=== PATIENT | female | born 1965 | race Caucasian/White ===

== ENCOUNTER 2016-11-26 13:14 | Emergency (ER) | payer OTHER | END 2016-11-26 13:54 | disposition left against medical advice (07) | LOC: M ED 13:14 | DX: F41.9 Anxiety disorder, unspecified (principal); Z53.20 Procedure and treatment not carried out because of patient's decision for unspecified reasons ==

== ENCOUNTER → 2016-11-26 | Outpatient (CLI) | payer OTHER ==
[2016-11-26 14:41] LABS: VITAMIN B12 LEVEL 302 PG/ML (247-911)
[2016-11-26 14:43] LABS: TOTAL PROTEIN 7.4 GM/DL (6.4-8.2)
[2016-11-29 12:57] LABS: ALBUMIN 4.31 GM/DL (3.29-5.55); ALBUMIN % 58.2 % (55.8-66.1); GAMMA GLOBULIN % 12.8 % (11.1-18.8)
== END | disposition home or self-care (01) ==
LOC: M LAB 12:42
PROVIDERS: ATTEND Internal Medicine
DX: G62.9 Polyneuropathy, unspecified (principal)

== ENCOUNTER 2016-12-05 14:44 | Emergency (ER) | payer OTHER | END 2016-12-05 15:10 | disposition left against medical advice (07) | LOC: M ED 14:44 | DX: Z76.0 Encounter for issue of repeat prescription (principal); Z53.20 Procedure and treatment not carried out because of patient's decision for unspecified reasons ==

== ENCOUNTER → 2016-12-28 | Outpatient (CLI) | payer OTHER | LOC: M WHC 13:52 | PROVIDERS: ATTEND Nurse Practitioner Family | DX: Z12.31 Encounter for screening mammogram for malignant neoplasm of breast (principal) ==

== ENCOUNTER 2016-12-29 10:00 | Emergency (ER) | payer OTHER ==
--- NOTE | 2016-12-29 10:22 | EDDOCDS ---
Nurse's Notes [facility] Name: Geoff Wade Age: 51 yrs Sex: Female : 1965 Arrival Date: 12/29/2016 Time: 10:00 Bed Triage 3 [facility]: [facility] Diagnosis: Encounter for issue of repeat prescription Presentation: 12/29 10:06 Presenting complaint: Patient states: I need refills of some of my BP medications mlb1 Amlodipine 10 mg daily, Losartan-HCTZ 100-25 mg daily, Neurontin 800 mg TID. Adult Sepsis Screening: The patient does not have new or worsening altered mentation. Patient's respiratory rate is less than 22. Systolic blood pressure is greater than 100. Patient has a qSOFA score of 0- Negative Sepsis Screen. Suicide/Homicide risk assessment- the patient denies having any suicidal and/or homicidal ideations and does not present with any other emotional, behavioral or mental health complaints. Status: Patient is not a developmental services worker or dependent. Transition of care: patient was not received from another setting of care. 10:06 Acuity: JAYLENE Level 5 mlb1 10:06 Method Of Arrival: Walkin/Carried/Asstd mlb1 Triage Assessment: 10:10 General: Appears in no apparent distress, Behavior is appropriate for age, cooperative. mlb1 Pain: Denies pain. 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 amlodipine 10 mg oral tab once daily 2. Fish Oil Oral 2 pils daily 3. Flexeril 10 mg Oral tab nightly 4. ibuprofen 600 mg Oral tab as needed 5. lorazepam 0.5 mg Oral tab as needed 6. losartan-hydrochlorothiazide 100-25 mg oral tab 1 tab once daily 7. Neurontin 800 mg Oral tab 3 times per day 8. Suboxone 8-2 mg SL subl 1 tab once daily 9. topiramate 25 mg oral tab 1 tabs 2 times per day started 09/24/15 10. Tylenol 500mg Oral 2 tabs as needed 11. Vitamin D3 Complete oral daily - PMHx: Anxiety; back pain and belia in right hip; Headaches; Hypertension; old fx right hip; - PSHx: Hysterectomy; - Social history: Smoking status: Patient states former smoker of tobacco. No barriers to communication noted, The patient speaks fluent Djiboutian, Speaks appropriately for age. - Family history: Not pertinent. - : The pt / caregiver states he / she is not on anticoagulants. Home medication list is obtained from the patient. - Exposure Risk Screening:: None identified. Screenin:11 Screening information is obtained from the patient. Fall risk: No risks identified. mlb1 Assistance ADL's: requires no assistance with activities of daily living. Abuse/DV Screen: The patient / caregiver reports he/she is: not in a situation that causes fear, pain or injury. Nutritional screening: No deficits noted. Advance Directives: Currently, there is no health care proxy. home support is adequate. Assessment: 10:16 General: Appears in no apparent distress, comfortable, Behavior is appropriate for age, mlb1 cooperative. Pain: Denies pain. Neurological: No deficits noted. Respiratory: No deficits noted. Derm: Skin is pink, warm & dry. normal. Vital Signs: 10:02 BP 112 / 66; Pulse 99; Resp 18; Temp 99.2; Pulse Ox 96% ; Weight 86.18 kg; Height 5 ft. elp 2 in. (157.48 cm); 10:02 Body Mass Index 34.75 (86.18 kg, 157.48 cm) [facility] Vitals: 10:02 Log In Time: December 29, 2016 at 10:00. [facility] ED Course: 10:01 Patient visited by Tanja Falcon PCA. elp 10:01 Patient moved to Waiting elp 10:02 [facility] is Private Physician. elp 10:02 Patient visited by Tanja Falcon PCA. elp 10:02 Patient moved to Pre E elp 10:06 Patient visited by Denny Combs, LEDY. mlb1 10:09 Triage Initiated mlb1 10:11 Patient visited by Denny Combs, LEDY. mlb1 10:11 [facility] ar2 10:11 Ruth Clements MD is Attending Physician. ar2 10:11 Patient visited by Wilfredo Tavera PA-C. ar2 10:11 The patient / caregiver is instructed regarding the plan of care and ED course. mlb1 10:11 Patient moved to Triage 3 mlb1 10:11 No IV's were initiated during this patient's visit. No procedures done that require mlb1 assistance. 10:15 [facility] is Referral Physician. ar2 Order Results: There are currently no results for this order. Outcome: 10:15 Discharge ordered by Provider. ar2 10:20 Discharge Assessment: Patient awake, alert and oriented x 3. No cognitive and/or mlb1 functional deficits noted. Patient verbalized understanding of disposition instructions. patient administered narcotics - no. The following High Risk Discharge criteria are identified: None. Condition: good. Discharge instructions given to patient, Instructed on discharge instructions, follow up and referral plans. medication usage, Demonstrated understanding of instructions, medications, Pt was receptive of discharge instructions/ teaching. Prescriptions given X 3. No special radiology studies were completed. Property sent home with patient. 10:21 Patient left the ED. mlb1 Signatures: Denny Combs RN RN mlb1 Wilfredo Tavera PA-C PA-C ar2 Ezekiel, Tanja, WOOD PATTERN MAKER WOOD PATTERN MAKER elp WILMER
--- NOTE | 2016-12-29 10:22 | EDDOCDS ---
Physician Documentation [facility] Name: Geoff Wade Age: 51 yrs Sex: Female : 1965 Arrival Date: 12/29/2016 Time: 10:00 Bed Triage 3 Private MD: [facility] Disposition: 12/29/16 10:15 Discharged to Home/Self Care. Impression: Encounter for issue of repeat prescription. - Condition is Stable. - Discharge Instructions: Hypertension, Medicine Refill at the Emergency Department. - Prescriptions for Neurontin 800 mg Oral tablet - take 1 tablet by ORAL route 3 times per day; 15 tablet. amlodipine 10 mg Oral tablet - take 1 tablet by ORAL route once daily; 5 tablet. losartan- hydrochlorothiazide 100-25 mg Oral tablet - take 1 tablet by ORAL route once daily; 5 tablet. - Medication Reconciliation, Local Pharmacy Hours form. - Follow up: [facility]; When: Call to arrange an appointment; Reason: Continuance of care. Follow up: Emergency Department; When: As needed. - Problem is new. - Symptoms are unchanged. Historical: - Allergies: no known allergies; - Home Meds: 1. amlodipine 10 mg oral tab once daily 2. Fish Oil Oral 2 pils daily 3. Flexeril 10 mg Oral tab nightly 4. ibuprofen 600 mg Oral tab as needed 5. lorazepam 0.5 mg Oral tab as needed 6. losartan-hydrochlorothiazide 100-25 mg oral tab 1 tab once daily 7. Neurontin 800 mg Oral tab 3 times per day 8. Suboxone 8-2 mg SL subl 1 tab once daily 9. topiramate 25 mg oral tab 1 tabs 2 times per day started 09/24/15 10. Tylenol 500mg Oral 2 tabs as needed 11. Vitamin D3 Complete oral daily - PMHx: Anxiety; back pain and belia in right hip; Headaches; Hypertension; old fx right hip; - PSHx: Hysterectomy; - Social history: Smoking status: Patient states former smoker of tobacco. No barriers to communication noted, The patient speaks fluent Kyrgyz, Speaks appropriately for age. - Family history: Not pertinent. - : The pt / caregiver states he / she is not on anticoagulants. Home medication list is obtained from the patient. - Exposure Risk Screening:: None identified. 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 2 in. (157.48 cm); 10:02 Body Mass Index 34.75 (86.18 kg, 157.48 cm) elp MDM: 10:17 Financial registration complete. lg Signatures: Silva Flores, Reg Reg lg Denny Combs RN RN mlb1 Wilfredo Tavera PA-C PALinda ar2 MTDD
--- NOTE | 2016-12-31 11:22 | EDDOCDS ---
Physician Documentation [facility] Name: Geoff Wade Age: 51 yrs Sex: Female : 1965 Arrival Date: 12/29/2016 Time: 10:00 Bed Triage 3 Private MD: [facility] Disposition: 12/29/16 10:15 Discharged to Home/Self Care. Impression: Encounter for issue of repeat prescription. - Condition is Stable. - Discharge Instructions: Hypertension, Medicine Refill at the Emergency Department. - Prescriptions for Neurontin 800 mg Oral tablet - take 1 tablet by ORAL route 3 times per day; 15 tablet. amlodipine 10 mg Oral tablet - take 1 tablet by ORAL route once daily; 5 tablet. losartan- hydrochlorothiazide 100-25 mg Oral tablet - take 1 tablet by ORAL route once daily; 5 tablet. - Medication Reconciliation, Local Pharmacy Hours form. - Follow up: [facility]; When: Call to arrange an appointment; Reason: Continuance of care. Follow up: Emergency Department; When: As needed. - Problem is new. - Symptoms are unchanged. Historical: - Allergies: no known allergies; - Home Meds: 1. amlodipine 10 mg oral tab once daily 2. Fish Oil Oral 2 pils daily 3. Flexeril 10 mg Oral tab nightly 4. ibuprofen 600 mg Oral tab as needed 5. lorazepam 0.5 mg Oral tab as needed 6. losartan-hydrochlorothiazide 100-25 mg oral tab 1 tab once daily 7. Neurontin 800 mg Oral tab 3 times per day 8. Suboxone 8-2 mg SL subl 1 tab once daily 9. topiramate 25 mg oral tab 1 tabs 2 times per day started 09/24/15 10. Tylenol 500mg Oral 2 tabs as needed 11. Vitamin D3 Complete oral daily - PMHx: Anxiety; back pain and belia in right hip; Headaches; Hypertension; old fx right hip; - PSHx: Hysterectomy; - Social history: Smoking status: Patient states former smoker of tobacco. No barriers to communication noted, The patient speaks fluent Hungarian, Speaks appropriately for age. - Family history: Not pertinent. - : The pt / caregiver states he / she is not on anticoagulants. Home medication list is obtained from the patient. - Exposure Risk Screening:: None identified. 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 2 in. (157.48 cm); 10:02 Body Mass Index 34.75 (86.18 kg, 157.48 cm) elp MDM: 10:17 Financial registration complete. : [facility] Payment Agreement was scanned into [employer] and attached to record. lg 12/31 08:02 T-Sheet-- Draft Copy was scanned into [employer] and attached to record. lg Signatures: Silva Flores, Reg Reg lg Denny Combs RN RN mlb1 Wilfredo Tavera PA-C PA-C ar2 The chart was reviewed and I authenticate all verbal orders and agree with the evaluation and treatment provided.Attachments: 12/29 10:23 [facility] Payment Agreement lg 12/31 08:02 T-Sheet-- Draft Copy lg Chart Complete MTDD
--- NOTE | 2016-12-31 11:22 | EDDOCDS ---
Physician Documentation [facility] Name: Geoff Wade Age: 51 yrs Sex: Female : 1965 Arrival Date: 12/29/2016 Time: 10:00 Bed Triage 3 Private MD: [facility] Disposition: 12/29/16 10:15 Discharged to Home/Self Care. Impression: Encounter for issue of repeat prescription. - Condition is Stable. - Discharge Instructions: Hypertension, Medicine Refill at the Emergency Department. - Prescriptions for Neurontin 800 mg Oral tablet - take 1 tablet by ORAL route 3 times per day; 15 tablet. amlodipine 10 mg Oral tablet - take 1 tablet by ORAL route once daily; 5 tablet. losartan- hydrochlorothiazide 100-25 mg Oral tablet - take 1 tablet by ORAL route once daily; 5 tablet. - Medication Reconciliation, Local Pharmacy Hours form. - Follow up: [facility]; When: Call to arrange an appointment; Reason: Continuance of care. Follow up: Emergency Department; When: As needed. - Problem is new. - Symptoms are unchanged. Historical: - Allergies: no known allergies; - Home Meds: 1. amlodipine 10 mg oral tab once daily 2. Fish Oil Oral 2 pils daily 3. Flexeril 10 mg Oral tab nightly 4. ibuprofen 600 mg Oral tab as needed 5. lorazepam 0.5 mg Oral tab as needed 6. losartan-hydrochlorothiazide 100-25 mg oral tab 1 tab once daily 7. Neurontin 800 mg Oral tab 3 times per day 8. Suboxone 8-2 mg SL subl 1 tab once daily 9. topiramate 25 mg oral tab 1 tabs 2 times per day started 09/24/15 10. Tylenol 500mg Oral 2 tabs as needed 11. Vitamin D3 Complete oral daily - PMHx: Anxiety; back pain and belia in right hip; Headaches; Hypertension; old fx right hip; - PSHx: Hysterectomy; - Social history: Smoking status: Patient states former smoker of tobacco. No barriers to communication noted, The patient speaks fluent Hungarian, Speaks appropriately for age. - Family history: Not pertinent. - : The pt / caregiver states he / she is not on anticoagulants. Home medication list is obtained from the patient. - Exposure Risk Screening:: None identified. 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 2 in. (157.48 cm); 10:02 Body Mass Index 34.75 (86.18 kg, 157.48 cm) elp MDM: 10:17 Financial registration complete. : [facility] [place] Agreement was scanned into [employer] and attached to record. lg 12/31 08:02 T-Sheet-- Draft Copy was scanned into [employer] and attached to record. lg Signatures: Silva Flores, Reg Reg lg Denny Combs RN RN mlb1 Wilfredo Tavera PA-C PA-C ar2 The chart was reviewed and I authenticate all verbal orders and agree with the evaluation and treatment provided.Attachments: 12/29 10:23 [facility] [place] Agreement lg 12/31 08:02 T-Sheet-- Draft Copy lg Chart Complete MTDD
--- NOTE | 2016-12-31 11:22 | EDDOCDS ---
Nurse's Notes [facility] Name: Geoff Wade Age: 51 yrs Sex: Female : 1965 Arrival Date: 12/29/2016 Time: 10:00 Bed Triage 3 Private [facility]: [facility] Diagnosis: Encounter for issue of repeat prescription Presentation: 12/29 10:06 Presenting complaint: Patient states: I need refills of some of my BP medications mlb1 Amlodipine 10 mg daily, Losartan-HCTZ 100-25 mg daily, Neurontin 800 mg TID. Adult Sepsis Screening: The patient does not have new or worsening altered mentation. Patient's respiratory rate is less than 22. Systolic blood pressure is greater than 100. Patient has a qSOFA score of 0- Negative Sepsis Screen. Suicide/Homicide risk assessment- the patient denies having any suicidal and/or homicidal ideations and does not present with any other emotional, behavioral or mental health complaints. 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 Transition of care: patient was not received from another setting of care. 10:06 Acuity: JAYLENE Level 5 mlb1 10:06 Method Of Arrival: Walkin/Carried/Asstd mlb1 Triage Assessment: 10:10 General: Appears in no apparent distress, Behavior is appropriate for age, cooperative. mlb1 Pain: Denies pain. 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 amlodipine 10 mg oral tab once daily 2. Fish Oil Oral 2 pils daily 3. Flexeril 10 mg Oral tab nightly 4. ibuprofen 600 mg Oral tab as needed 5. lorazepam 0.5 mg Oral tab as needed 6. losartan-hydrochlorothiazide 100-25 mg oral tab 1 tab once daily 7. Neurontin 800 mg Oral tab 3 times per day 8. Suboxone 8-2 mg SL subl 1 tab once daily 9. topiramate 25 mg oral tab 1 tabs 2 times per day started 09/24/15 10. Tylenol 500mg Oral 2 tabs as needed 11. Vitamin D3 Complete oral daily - PMHx: Anxiety; back pain and belia in right hip; Headaches; Hypertension; old fx right hip; - PSHx: Hysterectomy; - Social history: Smoking status: Patient states former smoker of tobacco. No barriers to communication noted, The patient speaks fluent Cook Islander, Speaks appropriately for age. - Family history: Not pertinent. - : The pt / caregiver states he / she is not on anticoagulants. Home medication list is obtained from the patient. - Exposure Risk Screening:: None identified. Screenin:11 Screening information is obtained from the patient. Fall risk: No risks identified. mlb1 Assistance ADL's: requires no assistance with activities of daily living. Abuse/DV Screen: The patient / caregiver reports he/she is: not in a situation that causes fear, pain or injury. Nutritional screening: No deficits noted. Advance Directives: Currently, there is no health care proxy. home support is adequate. Assessment: 10:16 General: Appears in no apparent distress, comfortable, Behavior is appropriate for age, mlb1 cooperative. Pain: Denies pain. Neurological: No deficits noted. Respiratory: No deficits noted. Derm: Skin is pink, warm & dry. normal. Vital Signs: 10:02 BP 112 / 66; Pulse 99; Resp 18; Temp 99.2; Pulse Ox 96% ; Weight 86.18 kg; Height 5 ft. elp 2 in. (157.48 cm); 10:02 Body Mass Index 34.75 (86.18 kg, 157.48 cm) [facility] Vitals: 10:02 Log In Time: December 29, 2016 at 10:00. [facility] ED Course: 10:01 Patient visited by Tanja Falcon PCA. elp 10:01 Patient moved to Waiting elp 10:02 [facility] is Private Physician. elp 10:02 Patient visited by Tanja Falcon PCA. elp 10:02 Patient moved to Pre E elp 10:06 Patient visited by Denny Combs, LEDY. mlb1 10:09 Triage Initiated mlb1 10:11 Patient visited by Denny Combs, LEDY. mlb1 10:11 [facility] ar2 10:11 Ruth Clements MD is Attending Physician. ar2 10:11 Patient visited by Wilfredo Tavera PA-C. ar2 10:11 The patient / caregiver is instructed regarding the plan of care and ED course. mlb1 10:11 Patient moved to Triage 3 mlb1 10:11 No IV's were initiated during this patient's visit. No procedures done that require mlb1 assistance. 10:15 [facility] is Referral Physician. ar2 10:23 [facility] Payment Agreement was scanned into [employer] and attached to record. meka 12/31 08:02 T-Sheet-- Draft Copy was scanned into [employer] and attached to record. Order Results: There are currently no results for this order. Outcome: 12/29 10:15 Discharge ordered by Provider. ar2 10:20 Discharge Assessment: Patient awake, alert and oriented x 3. No cognitive and/or mlb1 functional deficits noted. Patient verbalized understanding of disposition instructions. patient administered narcotics - no. The following High Risk Discharge criteria are identified: None. Condition: good. Discharge instructions given to patient, Instructed on discharge instructions, follow up and referral plans. medication usage, Demonstrated understanding of instructions, medications, Pt was receptive of discharge instructions/ teaching. Prescriptions given X 3. No special radiology studies were completed. Property sent home with patient. 10:21 Patient left the ED. mlb1 Signatures: Silva Flores, Reg Reg lg Denny Combs, RN RN mlb1 Wilfredo Tavera, PANehaC PANehaC ar2 Ezekiel, Tanja, POSTAL SUPERVISOR POSTAL SUPERVISOR elp Chart Complete MTDD
== END 2016-12-29 10:21 | disposition home or self-care (01) ==
LOC: M ED 10:00
DX: Z76.0 Encounter for issue of repeat prescription (principal); F41.9 Anxiety disorder, unspecified; M54.9 Dorsalgia, unspecified; R51 Headache; I10 Essential (primary) hypertension; Z87.891 Personal history of nicotine dependence; Z79.899 Other long term (current) drug therapy

== ENCOUNTER → 2017-01-20 | Outpatient (CLI) | payer OTHER ==
[~2017-01-20] VITALS: Ht 152.4 cm; Wt 86.2 kg
[~2017-01-20] MED LIST: AMLO10TA2 PO; ASPI81TA85 PO; CYCL10TA PO; FISH1000 PO; GABA800T PO; LOSA100T37 PO; NS 1,000 ML IV SCH; PROZ20CA11 PO; SUBO8MIS SL; VITA2000 PO
== END ==
LOC: M OPP 12:16
PROVIDERS: ATTEND Internal Medicine Gastroenterology
DX: Z12.11 Encounter for screening for malignant neoplasm of colon (principal); Z53.8 Procedure and treatment not carried out for other reasons

== ENCOUNTER → 2017-01-28 | Outpatient (CLI) | payer OTHER ==
[~2017-01-28] MED LIST changes: -NS 1,000 ML IV SCH
--- NOTE | 2017-01-28 14:10 | REP ---
Clinical: Lung screening. History smoking. Technique: Axial noncontrast low-dose images from the thoracic inlet to the upper abdomen using lung screening protocol. Findings: The bilateral lung padilla are well-aerated and clear. No pulmonary parenchymal consolidation, nodule or mass lesion is appreciated. No pleural effusion or pneumothorax. Moderate to large hiatal hernia noted. Impression: Lung-RADS category I. No suspicious nodule/mass. Moderate hiatal hernia. Signed by Edgar Riley MD 01/28/2017 02:02 P
== END ==
LOC: M RAD 13:28
PROVIDERS: ATTEND Internal Medicine
DX: Z87.891 Personal history of nicotine dependence (principal); K44.9 Diaphragmatic hernia without obstruction or gangrene

== ENCOUNTER → 2017-02-28 | Outpatient (CLI) | payer OTHER ==
[2017-02-28 13:08] LABS: ALBUMIN/GLOBULIN RATIO 1.21 (1.00-1.93); ALKALINE PHOSPHATASE 122 U/L (45-117); ALT/SGPT 18 U/L (12-78); ANION GAP 9 MEQ/L (8-16); AST/SGOT 18 U/L (15-37); BILIRUBIN,TOTAL 0.5 MG/DL (0.2-1.0); BLOOD UREA NITROGEN 16 MG/DL (7-18); CALCIUM LEVEL 8.9 MG/DL (8.5-10.1); CARBON DIOXIDE LEVEL 30 MEQ/L (21-32); CHLORIDE LEVEL 98 MEQ/L (98-107); CHOLESTEROL LEVEL 293 MG/DL (<200); CREATININE FOR GFR 1.39 MG/DL (0.55-1.02); GLOMERULAR FILTRATION RATE 42.2 (>51); GLUCOSE, FASTING 79 MG/DL (70-105); POTASSIUM SERUM 3.5 MEQ/L (3.5-5.1); SODIUM LEVEL 137 MEQ/L (136-145); TOTAL PROTEIN 7.3 GM/DL (6.4-8.2); TRIGLYCERIDES LEVEL 147 MG/DL (<150)
[2017-03-03 00:06] LABS: SJOGREN'S ANTI SS-A <0.2 AI (0.0-0.9); SJOGREN'S ANTI SS-B <0.2 AI (0.0-0.9)
== END ==
LOC: M LAB 11:47
PROVIDERS: ATTEND Internal Medicine
DX: G62.9 Polyneuropathy, unspecified (principal); I10 Essential (primary) hypertension; G89.29 Other chronic pain; Z13.1 Encounter for screening for diabetes mellitus; E78.4 Other hyperlipidemia; E55.9 Vitamin D deficiency, unspecified; E66.9 Obesity, unspecified

== ENCOUNTER → 2017-04-07 | Outpatient (CLI) | payer OTHER ==
[~2017-04-07] VITALS: Ht 152.4 cm; Wt 80.7 kg
[~2017-04-07] MED LIST changes: +FISH100049 PO; +NS 1,000 ML IV ONE; +PROPOFOL 200 MG/20 ML VIAL As Ordered ONE; +SUBO2MIS SL; +VITA20008 PO
--- NOTE | 2017-04-07 13:26 | ROOR ---
Patient Name: Geoff Wade Procedure Date: 04/07/2017 1:00 PM Date of : 1965 Age: 51 Room: [facility] Gender: Female Note Status: Finalized Procedure: Colonoscopy Indications: Screening for colorectal malignant neoplasm Providers: Ethan HAMM MD Referring MD: ELLEN FLETCHER Jeramie [facility] Johan Requesting Provider: Medicines: Monitored Anesthesia Care Complications: No immediate complications. Procedure: Pre-Anesthesia Assessment: - The heart rate, respiratory rate, oxygen saturations, blood pressure, adequacy of pulmonary ventilation, and response to care were monitored throughout the procedure. The Colonoscope was introduced through the anus and advanced to the cecum, identified by appendiceal orifice and ileocecal valve. The colonoscopy was performed without difficulty. The patient tolerated the procedure well. The quality of the bowel preparation was good. Findings: The perianal and digital rectal examinations were normal. Multiple medium-mouthed diverticula were found in the sigmoid colon. There was evidence of diverticular spasm. Two 3 to 4 mm polyp was found in the ascending colon. The polyp was sessile. The polyp was removed with a cold snare. Resection and retrieval were complete. The exam was otherwise without abnormality. Impression: - Moderate diverticulosis in the sigmoid colon. There was evidence of diverticular spasm. - Two 3 to 4 mm polyp in the ascending colon, removed with a cold snare. Resected and retrieved. - The examination was otherwise normal. Recommendation: - Telephone endoscopist for pathology results in 2 weeks. - If the pathology report reveals adenomatous tissue, then repeat the colonoscopy for surveillance in 5 years. - If the pathology report indicates hyperplastic polyp, then repeat colonoscopy for screening purposes in 10 years. Ethan Hamm MD Ethan HAMM MD 04/07/2017 1:25:46 PM This report has been signed electronically. Number of Addenda: 0 Note Initiated On: 04/07/2017 1:00 PM Estimated Blood Loss: Estimated blood loss: none.
[2017-04-07 13:50] VITALS: BP 133/90
== END | disposition home or self-care (01) ==
LOC: M OPP 11:10
PROVIDERS: ATTEND Internal Medicine Gastroenterology
DX: Z12.11 Encounter for screening for malignant neoplasm of colon (principal); D12.2 Benign neoplasm of ascending colon; K57.30 Diverticulosis of large intestine without perforation or abscess without bleeding; I10 Essential (primary) hypertension; M19.90 Unspecified osteoarthritis, unspecified site; M51.9 Unspecified thoracic, thoracolumbar and lumbosacral intervertebral disc disorder; M25.60 Stiffness of unspecified joint, not elsewhere classified; F32.9 Major depressive disorder, single episode, unspecified; Z87.891 Personal history of nicotine dependence; Z79.899 Other long term (current) drug therapy; Z79.82 Long term (current) use of aspirin; Z80.8 Family history of malignant neoplasm of other organs or systems

== ENCOUNTER 2017-05-11 12:11 | Emergency (ER) | payer OTHER ==
[~2017-05-11] VITALS: Ht 157.5 cm; Wt 82.2 kg
[2017-05-11 12:12] VITALS: BP 98/57
[2017-05-13] MEDS ORDERED: METAL LOCK LOOP XX ONE (05:35)
== END 2017-05-11 12:28 | disposition left against medical advice (07) ==
LOC: M ED 12:24
DX: S99.919A Unspecified injury of unspecified ankle, initial encounter (principal); Z53.21 Procedure and treatment not carried out due to patient leaving prior to being seen by health care provider

== ENCOUNTER → 2017-05-11 | Outpatient (CLI) | payer OTHER ==
[~2017-05-11] MED LIST changes: -LOSA100T37 PO; +LOSA100T5 PO; -NS 1,000 ML IV ONE; -PROPOFOL 200 MG/20 ML VIAL As Ordered ONE
[2017-05-11 13:16] LABS: ALBUMIN 3.6 GM/DL (3.2-5.2); BILIRUBIN,TOTAL 0.4 MG/DL (0.2-1.0); CALCIUM LEVEL 9.1 MG/DL (8.5-10.1); CREATININE FOR GFR 1.06 MG/DL (0.55-1.02); GLOMERULAR FILTRATION RATE 57.7 (>51); TOTAL PROTEIN 7.2 GM/DL (6.4-8.2)
== END ==
LOC: M LAB 11:46
DX: N18.3 Chronic kidney disease, stage 3 (moderate) (principal)

== ENCOUNTER → 2017-12-16 | Outpatient (CLI) | payer OTHER | LOC: M RAD 13:10 | DX: M25.561 Pain in right knee (principal) | CPT/HCPCS: 73560 ==

== ENCOUNTER → 2017-12-22 | Outpatient (REF) | payer OTHER | LOC: M SFHCPLAZ 15:38 | DX: E78.2 Mixed hyperlipidemia (principal); I10 Essential (primary) hypertension; Z11.59 Encounter for screening for other viral diseases; Z53.8 Procedure and treatment not carried out for other reasons ==

== ENCOUNTER → 2018-06-29 | Outpatient (REF) | payer OTHER | LOC: M SFHCPLAZ 15:32 | DX: I10 Essential (primary) hypertension (principal); E78.2 Mixed hyperlipidemia; Z11.59 Encounter for screening for other viral diseases ==

== ENCOUNTER 2018-09-03 08:04 | Emergency (ER) | payer OTHER ==
[2018-09-03 08:38] LABS: HEMATOCRIT 38.1 % (36.0-47.0); HEMOGLOBIN 12.9 g/dl (12.0-15.5); MEAN CORPUSCULAR HEMOGLOBIN 31.1 pg (27.0-33.0); MEAN CORPUSCULAR HGB CONC 33.9 g/dl (32.0-36.5); MEAN CORPUSCULAR VOLUME 91.8 fl (80.0-96.0); PLATELET COUNT, AUTOMATED 311 10^3/uL (150-450); RED BLOOD COUNT 4.15 10^6/uL (4.00-5.40); RED CELL DISTRIBUTION WIDTH 12.7 % (11.5-14.5); WHITE BLOOD COUNT 7.5 10^3/uL (4.0-10.0)
[2018-09-03] MEDS: NS 1,000 ML IV (08:45)
[2018-09-03 08:58] LABS: ACETAMINOPHEN LEVEL < 2.0 UG/ML (10.0-30.0); ALBUMIN/GLOBULIN RATIO 1.11 (1.00-1.93); ALKALINE PHOSPHATASE 133 U/L (45-117); ALT/SGPT 16 U/L (12-78); ANION GAP 9 MEQ/L (8-16); AST/SGOT 17 U/L (7-37); BILIRUBIN,DIRECT < 0.1 MG/DL (0.0-0.2); BILIRUBIN,TOTAL 0.4 MG/DL (0.2-1.0); BLOOD UREA NITROGEN 14 MG/DL (7-18); CALCIUM LEVEL 9.5 MG/DL (8.5-10.1); CARBON DIOXIDE LEVEL 29 MEQ/L (21-32); CHLORIDE LEVEL 102 MEQ/L (98-107); CREATININE FOR GFR 1.15 MG/DL (0.55-1.30); ETHYL ALCOHOL (ETHANOL) < 0.003 % (0.000-0.010); GLOMERULAR FILTRATION RATE 52.2 (>51); GLUCOSE, FASTING 92 MG/DL (70-100); POTASSIUM SERUM 3.5 MEQ/L (3.5-5.1); SALICYLATE LEVEL < 1.7 MG/DL (5.0-30.0); SODIUM LEVEL 140 MEQ/L (136-145); TOTAL PROTEIN 7.6 GM/DL (6.4-8.2)
[2018-09-03] MEDS: LORazepam 1 MG TAB PO (08:58)
[2018-09-03 09:22] LABS: AMPHETAMINES LEVEL URINE NEGATIVE (NEGATIVE); BARBITURATES URINE NEGATIVE (NEGATIVE); BENZODIAZEPINES URINE NEGATIVE (NEGATIVE); CANNABINOIDS URINE NEGATIVE (NEGATIVE); COCAINE METABOLITE URINE NEGATIVE (NEGATIVE); METHADONE URINE NEGATIVE (NEGATIVE); OPIATES URINE NEGATIVE (NEGATIVE); PHENCYCLIDINE URINE NEGATIVE (NEGATIVE)
[2018-09-03 09:58] LABS: CK-MB VALUE MASS < 1.0 NG/ML (<3.6); CPK CREATINE PHOSPHOKINASE 84 U/L (26-192); MB/CK RELATIVE INDEX 1.19 (< OR =4); TROPONIN I < 0.02 NG/ML (< 0.10)
== END 2018-09-03 11:08 | disposition home or self-care (01) ==
LOC: M ED 08:04
DX: F11.23 Opioid dependence with withdrawal (principal); F41.9 Anxiety disorder, unspecified; R11.2 Nausea with vomiting, unspecified; I10 Essential (primary) hypertension; F32.9 Major depressive disorder, single episode, unspecified; Z79.899 Other long term (current) drug therapy
CPT/HCPCS: 70450

== ENCOUNTER → 2018-11-24 | Outpatient (REF) | payer OTHER ==
[~2018-11-24] MED LIST changes: -AMLO10TA2 PO; +AMLO10TA5 PO; +ATIV1TAB10 PO; -GABA800T PO; +GABA800T4 PO; +ROLLMIS2 XX
== END ==
LOC: M SFHCPLAZ 11:31
PROVIDERS: ATTEND Nurse Practitioner Family
DX: E78.2 Mixed hyperlipidemia (principal); I10 Essential (primary) hypertension; E66.01 Morbid (severe) obesity due to excess calories; F41.1 Generalized anxiety disorder; E55.9 Vitamin D deficiency, unspecified

== ENCOUNTER → 2019-04-19 | Outpatient (REF) | payer OTHER | LOC: M SFHCPLAZ 15:29 | DX: E78.2 Mixed hyperlipidemia (principal); Z91.89 Other specified personal risk factors, not elsewhere classified; N18.3 Chronic kidney disease, stage 3 (moderate); E55.9 Vitamin D deficiency, unspecified ==

== ENCOUNTER → 2019-04-22 | Outpatient (REF) | payer OTHER | LOC: M SFHCPLAZ 20:25 | DX: E78.2 Mixed hyperlipidemia (principal); Z91.89 Other specified personal risk factors, not elsewhere classified; N18.3 Chronic kidney disease, stage 3 (moderate); E55.9 Vitamin D deficiency, unspecified; Z53.9 Procedure and treatment not carried out, unspecified reason ==

== ENCOUNTER → 2019-04-24 | Outpatient (CLI) | payer OTHER ==
[2019-04-24 10:35] LABS: ALBUMIN 3.9 GM/DL (3.2-5.2); ALT/SGPT 26 U/L (12-78); BILIRUBIN,TOTAL 0.3 MG/DL (0.2-1.0); BLOOD UREA NITROGEN 15 MG/DL (7-18); CALCIUM LEVEL 8.9 MG/DL (8.5-10.1); CARBON DIOXIDE LEVEL 30 MEQ/L (21-32); CHLORIDE LEVEL 102 MEQ/L (98-107); CHOLESTEROL LEVEL 292 MG/DL (<200); CHOLESTEROL RISK RATIO 4.634 (<5); CREATININE FOR GFR 1.05 MG/DL (0.55-1.30); GLOMERULAR FILTRATION RATE 57.9 (>51); GLUCOSE, FASTING 96 MG/DL (70-100); HDL CHOLESTEROL 63 MG/DL (>40); LDL CHOLESTEROL 201 MG/DL (<100); NON-HDL-C 229 MG/DL; SODIUM LEVEL 138 MEQ/L (136-145); TOTAL PROTEIN 7.6 GM/DL (6.4-8.2); TRIGLYCERIDES LEVEL 141 MG/DL (<150)
[2019-04-25 11:17] LABS: HEPATITIS C VIRUS ABY INDEX < 0.0 INDEX (<0.8)
== END ==
LOC: M LAB 09:31
PROVIDERS: ATTEND Internal Medicine
DX: E78.2 Mixed hyperlipidemia (principal); Z91.89 Other specified personal risk factors, not elsewhere classified; N18.3 Chronic kidney disease, stage 3 (moderate)

== ENCOUNTER → 2019-04-24 | Outpatient (CLI) | payer OTHER ==
--- NOTE | 2019-04-24 11:28 | REPMRS ---
Patient History The patient states she has not had a clinical breast exam in over a year. No known family history of cancer. 3D TOMOSYNTHESIS WAS PERFORMED. [facility] risk for [facility] cancer is 8.7%. Digital Mammo Screening Bilat: April 24, 2019 - Exam #: [id number] Bilateral CC and MLO view(s) were taken. Technologist: Jennifer Stearns, Technologist Prior study comparison: December 28, 2016, digital woman screen mammo, performed at [facility]. 2012, bilateral digital woman screen mammo, performed at [facility]. FINDINGS: There are scattered fibroglandular densities. There has been no change in the appearance of the mammogram from the prior studies. There is a mild amount of residual fibroglandular tissue which is fairly symmetric. There is no interval development of dominant mass, architectural distortion, or clustered microcalcification suggestive of malignancy. Assessment: BI-RADS/ACR category 1 mammogram. Negative Mammogram. Recommendation Routine screening mammogram in 1 year (for women over age 40). This mammogram was interpreted with the aid of an FDA-approved computer-aided dectection system. Electronically Signed By: Kirk Ruiz MD 04/24/19 0626
== END ==
LOC: M RAD 09:26
PROVIDERS: ATTEND Nurse Practitioner Family
DX: Z12.31 Encounter for screening mammogram for malignant neoplasm of breast (principal)

== ENCOUNTER → 2019-06-25 | Outpatient (CLI) | payer OTHER ==
--- NOTE | 2019-06-26 08:24 | REP ---
REASON FOR EXAM: Tobacco abuse. COMPARISON EXAM: 01/28/2017 As per the protocol, only lung window images were sent to the read station for interpretation. There is an unchanged 3-mm sized nodule in the right lower lobe. No new abnormal nodules, masses, or opacities have developed. Grossly, there is no significant change in appearance of the mediastinum. There is a large hiatal hernia, status quo. Grossly, there is no significant change in appearance of the imaged upper abdomen or imaged osseous structures. IMPRESSION: No significant change from the prior exam. Lung-RADS category 2. Electronically Signed by Ronn Castro DO 06/26/2019 11:25 A
== END ==
LOC: M RAD 13:45
PROVIDERS: ATTEND Internal Medicine
DX: Z12.2 Encounter for screening for malignant neoplasm of respiratory organs (principal); F17.201 Nicotine dependence, unspecified, in remission

== ENCOUNTER → 2019-08-16 | Outpatient (REF) | payer OTHER | LOC: M SFHCPLAZ 15:08 | DX: Z53.9 Procedure and treatment not carried out, unspecified reason (principal) ==

== ENCOUNTER → 2019-11-06 | Outpatient (CLI) | payer OTHER ==
[2019-11-06 12:41] LABS: HEMOGLOBIN A1c 5.5 %
[2019-11-06 12:49] LABS: CHOLESTEROL RISK RATIO 3.8 (<5); THYROID STIMULATING HORMONE 2.36 uIU/ML (0.358-3.740)
== END ==
LOC: M LAB 11:51
PROVIDERS: ATTEND Internal Medicine
DX: E78.2 Mixed hyperlipidemia (principal); E66.01 Morbid (severe) obesity due to excess calories

== ENCOUNTER → 2020-07-29 | Outpatient (CLI) | payer OTHER ==
[~2020-07-29] MED LIST changes: -AMLO10TA5 PO; +AMLO1TAB25 PO; -ASPI81TA85 PO; +ASPI81TA86 PO; +CYCL-707 PO; -CYCL10TA PO
--- NOTE | 2020-08-07 08:55 | REP ---
NONCONTRAST CHEST CT CLINICAL: Lung nodule follow-up. COMPARISON: 06/25/2019, 01/28/2017. TECHNIQUE: Axial noncontrast images from the thoracic inlet to the upper abdomen with coronal and sagittal reformations. FINDINGS: The bilateral lung padilla are well-aerated and essentially clear. No consolidation, significant nodule, or mass lesion. Small 3 mm subpleural nodule in the posterior right lower lobe remains unchanged. No effusion. No pneumothorax. Mediastinum demonstrates stable large paraesophageal gastric hiatal hernia along with atherosclerotic changes to the thoracic aorta and coronary arteries. No cardiomegaly or aortic aneurysm. Musculoskeletal structures are intact. IMPRESSION: * No acute mediastinal or pleural parenchymal process. A 3-mm subpleural nodule unchanged compared through 2017. * Stable large paraesophageal gastric hiatal hernia. MTDD
== END ==
LOC: M RAD 09:18
PROVIDERS: ATTEND Student in an Organized Health Care Education/Training Program
DX: R91.8 Other nonspecific abnormal finding of lung field (principal); K44.9 Diaphragmatic hernia without obstruction or gangrene

== ENCOUNTER → 2020-09-25 | Outpatient (REF) | payer OTHER ==
[2020-09-25 17:39] LABS: BLOOD UREA NITROGEN 12 MG/DL (7-18); CALCIUM LEVEL 9.2 MG/DL (8.5-10.1); CARBON DIOXIDE LEVEL 30 MEQ/L (21-32); CHLORIDE LEVEL 98 MEQ/L (98-107); CHOLESTEROL LEVEL 302 MG/DL (<200); CREATININE FOR GFR 0.93 MG/DL (0.55-1.30); GLOMERULAR FILTRATION RATE > 60.0 (>51); GLUCOSE, FASTING 79 MG/DL (70-100); HDL CHOLESTEROL 62 MG/DL (>40); LDL CHOLESTEROL 203 MG/DL (<100); NON-HDL-C 240 MG/DL; POTASSIUM SERUM 3.5 MEQ/L (3.5-5.1); SODIUM LEVEL 136 MEQ/L (136-145); TRIGLYCERIDES LEVEL 185 MG/DL (<150)
[2020-09-25 17:46] LABS: TOTAL 25(OH) VITAMIN D 21.2 NG/ML (30.0-100.0)
== END ==
LOC: M SFHCPLAZ 14:00
PROVIDERS: ATTEND Family Medicine
DX: E78.2 Mixed hyperlipidemia (principal); I10 Essential (primary) hypertension; E55.9 Vitamin D deficiency, unspecified

== ENCOUNTER → 2021-01-29 | Outpatient (REF) | payer OTHER ==
[2021-01-29 14:42] LABS: ESTRADIOL < 19.0 PG/ML; FOLLICLE STIMULATING HORMONE 2.8 mIU/mL
== END ==
LOC: M PLALAB 11:33
PROVIDERS: ATTEND Nurse Practitioner Family
DX: N95.1 Menopausal and female climacteric states (principal)

== ENCOUNTER → 2021-03-17 | Outpatient (CLI) | payer OTHER ==
--- NOTE | 2021-03-19 13:42 | SLEEPHOME ---
DATE: 03/17/2021 ORDERED BY: Hanny Rod NP Diagnostic home sleep testing was performed due to concern for the obstructive sleep apnea syndrome in this patient with a history of snoring and nonrestorative sleep who has comorbidity of hypertension. For testing, a nocturnal T3 respiratory monitoring device was used. Continuous record was made of pulse, oxygen saturation, air flow, chest and abdominal strain, and body position. Nine hours and 59 minutes of data were reviewed. There were 4 hours and 43 minutes marked as time in bed. During the interval marked time in bed, there were 112 respiratory events identified of 10 seconds in duration or greater for a respiratory event index of 23.7. The events were both obstructive, mixed and central. Fifty four mixed and central apneas were seen. Baseline pulse rate was 52. Pulse rate ranged 43 to 66. Baseline saturation was only 87%. Saturations fell to 81%. Testing was performed in both the supine and nonsupine positions. IMPRESSION: Abnormal home sleep testing with repetitive respiratory events and oxygen desaturations to 81% with a respiratory event index of 23.7 is consistent with the obstructive sleep apnea syndrome. RECOMMENDATION: The patient should be encouraged to undergo a formal sleep evaluation. cc: LAURY PERDOMO MD
== END ==
LOC: M SLEEP HO 13:55
PROVIDERS: ATTEND Nurse Practitioner Adult Health
DX: G47.30 Sleep apnea, unspecified (principal)

== ENCOUNTER → 2021-04-02 | Outpatient (CLI) | payer OTHER ==
--- NOTE | 2021-04-02 15:33 | REPMRS ---
Patient History The patient states she has not had a clinical breast exam in over a year. No known family history of cancer. No breast complaints today Patient signed the MRS sheet No covid vaccine Priors on PACS Patient Identification Verified Digital Woman Screen Mammo: April 02, 2021 - Exam #: [id number] Bilateral CC and MLO view(s) were taken. Technologist: Ines Krueger, Technologist Prior study comparison: April 24, 2019, bilateral digital mammo screening bilat, performed at [facility]. December 28, 2016, digital woman screen mammo performed at [facility]. 2012, bilateral digital woman screen mammo, performed at [facility]. FINDINGS: The breast tissue is almost entirely fat. The Volpara volumetric breast density category is: A. There has been no change in the appearance of the mammogram from the prior studies. There is no interval development of dominant mass, architectural distortion, or grouped microcalcification typical of malignancy. 3-D tomosynthesis shows no additional findings. Assessment: BI-RADS/ACR category 1 mammogram. Negative Mammogram. Recommendation Routine screening mammogram of both breasts in 1 year (for women over age 40). This patient's [facility] Lifetime Breast Cancer RIsk is estimated at 8.3 %. This mammogram was interpreted with the aid of an FDA-approved computer-aided dectection system. Electronically Signed By: Se Cardona MD 04/02/21 [id number]
== END ==
LOC: M WHC 14:32
PROVIDERS: ATTEND Physician Assistant
DX: Z12.31 Encounter for screening mammogram for malignant neoplasm of breast (principal)

== ENCOUNTER 2021-04-24 14:24 | Emergency (ER) | payer OTHER ==
[~2021-04-24] VITALS: Ht 154.9 cm; Wt 88.2 kg
[2021-04-24] MEDS ORDERED: BUPR2SUB SL (14:36)
--- NOTE | 2021-04-24 15:47 | REP ---
INDICATION: pain with movement, check hardware placement. COMPARISON: 01/14/2012. TECHNIQUE: AP view pelvis, AP and frogleg right hip. FINDINGS: Metallic internal fixation in the proximal right femur is unchanged. There is no acute fracture or dislocation. There are very mild degenerative changes at the hip joints bilaterally. IMPRESSION: Metallic internal fixation proximal right femur. No acute findings. <Electronically signed by Kirk Ruiz > 04/24/21 [id number]
--- NOTE | 2021-04-24 15:48 | REP ---
INDICATION: pain with movement, check hardware placement COMPARISON: 01/14/2012. TECHNIQUE: AP and lateral right femur. FINDINGS: There is no evidence of acute fracture, dislocation, or intrinsic bone disease.Metallic internal fixation in the proximal aspect of the right femur appears unchanged. IMPRESSION: No fracture or dislocation. No change in metallic internal fixation proximal right femur. <Electronically signed by Kirk Ruiz > 04/24/21 [id number]
[2021-04-24 16:28] VITALS: BP 138/72
== END 2021-04-24 16:30 | disposition home or self-care (01) ==
LOC: M ED 14:24
DX: M54.5 Low back pain (principal); R31.9 Hematuria, unspecified; M25.551 Pain in right hip; I10 Essential (primary) hypertension; F41.9 Anxiety disorder, unspecified; F19.11 Other psychoactive substance abuse, in remission; Z79.899 Other long term (current) drug therapy; Z98.890 Other specified postprocedural states

== ENCOUNTER → 2021-06-05 | Outpatient (CLI) | payer OTHER ==
[~2021-06-05] MED LIST changes: +BUPR2SUB SL
--- NOTE | 2021-06-08 18:33 | SLEEPCENT ---
DATE: 06/05/2021 ORDERED BY: Hanny Rod NP Nocturnal polysomnography was performed for the titration of pressure therapy in this patient with a clinical diagnosis of obstructive sleep apnea syndrome supported by home testing revealing a respiratory event index of 23.7. For testing, the patient was fit with a ResMed Airfit full face mask of medium size, 4 cm of water pressure were applied to the circuit and the lights were extinguished. Eight hours and 21 minutes of data were reviewed. There were 410.5 minutes of sleep identified. Sleep latency was mildly prolonged at 24.5 minutes. REM latency was more so prolonged at 273.5 minutes. Sleep architecture showed poor progression. There was only one REM cycle. Overall sleep efficiency was 82.8%. The electrocardiogram showed a sinus rhythm with an average heart rate of 44 beats per minute. Rate ranged 40-48. EEG showed reasonably normal waveforms for wake and sleep. Following the initiation of pressure therapy, central apneas emerged. Despite increases in pressure therapy, optimal mask fit, and minimal air leak, the patient required a change to a bilevel device. Backup rate was needed to address central apneas which were the most frequent of events during this study. All told, 376 respiratory events were seen of which 287 were central. Best sleep was seen on a bilevel device, inspiratory 16 over expiratory 12 with a backup rate of 10. IMPRESSIONS: Severe complex obstructive sleep apnea syndrome (G47.31, G47.33). RECOMMENDATION: Initiation of bilevel pressure therapy with an inspiratory pressure of 16 over expiratory of 12 with a backup rate of 10 is recommended as is close clinical followup. Depending on the patient's symptom response, re-titration may be reasonable. cc: LAURY PERDOMO MD
== END ==
LOC: M SLEEP 20:00
PROVIDERS: ATTEND Nurse Practitioner Adult Health
DX: G47.33 Obstructive sleep apnea (adult) (pediatric) (principal); G47.31 Primary central sleep apnea

== ENCOUNTER → 2021-09-22 | Outpatient (CLI) | payer OTHER ==
[2021-09-22 14:18] LABS: BLOOD UREA NITROGEN 13 MG/DL (7-18); CALCIUM LEVEL 9.4 MG/DL (8.5-10.1); CARBON DIOXIDE LEVEL 34 MEQ/L (21-32); CHLORIDE LEVEL 102 MEQ/L (98-107); CHOLESTEROL LEVEL 221 MG/DL (<200); CHOLESTEROL RISK RATIO 3.745 (<5); CREATININE FOR GFR 0.88 MG/DL (0.55-1.30); GLOMERULAR FILTRATION RATE > 60.0 (>51); GLUCOSE, FASTING 85 MG/DL (70-100); HDL CHOLESTEROL 59 MG/DL (>40); LDL CHOLESTEROL 133 MG/DL (<100); NON-HDL-C 162 MG/DL; POTASSIUM SERUM 4.1 MEQ/L (3.5-5.1); SODIUM LEVEL 140 MEQ/L (136-145); TRIGLYCERIDES LEVEL 144 MG/DL (<150)
[2021-09-22 14:23] LABS: TOTAL 25(OH) VITAMIN D 34.8 NG/ML (30.0-100.0)
== END ==
LOC: M PLALAB 12:03
PROVIDERS: ATTEND Family Medicine
DX: I12.9 Hypertensive chronic kidney disease with stage 1 through stage 4 chronic kidney disease, or unspecified chronic kidney disease (principal); N18.31 Chronic kidney disease, stage 3a

== ENCOUNTER → 2021-10-14 | Outpatient (CLI) | payer OTHER ==
--- NOTE | 2021-10-15 05:51 | REP ---
INDICATION: CIGARETTE DEPENDENCE COMPARISON: 06/25/2019 TECHNIQUE: Axial noncontrast images from the thoracic inlet to the upper abdomen using low-dose lung screening technique (LDCT). FINDINGS: The bilateral lung padilla demonstrate minimal stable interstitial changes suggesting a mild chronic bronchitis likely related to cigarette dependence. No acute consolidation, suspicious nodule or mass. No effusion. No pneumothorax. Tracheobronchial tree is patent. Mediastinum demonstrates large paraesophageal gastric hiatal hernia. IMPRESSION: Lung-RADS category 1. No suspicious nodule or mass. Management recommendations include annual low-dose CT surveillance. Large paraesophageal gastric hiatal hernia. <Electronically signed by Edgar Riley > 10/15/21 [id number]
== END ==
LOC: M RAD 14:03
PROVIDERS: ATTEND Family Medicine
DX: Z12.2 Encounter for screening for malignant neoplasm of respiratory organs (principal); F17.211 Nicotine dependence, cigarettes, in remission

== ENCOUNTER → 2022-03-30 | Outpatient (CLI) | payer OTHER ==
[2022-03-30 14:36] LABS: BLOOD UREA NITROGEN 13 MG/DL (7-18); CALCIUM LEVEL 9.2 MG/DL (8.5-10.1); CARBON DIOXIDE LEVEL 32 MEQ/L (21-32); CHLORIDE LEVEL 103 MEQ/L (98-107); CHOLESTEROL LEVEL 274 MG/DL (<200); CHOLESTEROL RISK RATIO 5.591 (<5); GLOMERULAR FILTRATION RATE > 60.0 (>51); GLUCOSE, FASTING 88 MG/DL (70-100); HDL CHOLESTEROL 49 MG/DL (>40); LDL CHOLESTEROL 184 MG/DL (<100); NON-HDL-C 225 MG/DL; POTASSIUM SERUM 3.8 MEQ/L (3.5-5.1); SODIUM LEVEL 139 MEQ/L (136-145); TRIGLYCERIDES LEVEL 204 MG/DL (<150)
[2022-03-30 14:42] LABS: TOTAL 25(OH) VITAMIN D 22.8 NG/ML (30.0-100.0)
== END ==
LOC: M LAB 13:35
PROVIDERS: ATTEND Family Medicine
DX: I10 Essential (primary) hypertension (principal)

== ENCOUNTER → 2022-07-26 | Outpatient (CLI) | payer OTHER ==
[2022-07-26 15:52] LABS: HEMATOCRIT 39.7 % (36.0-47.0); MEAN CORPUSCULAR HEMOGLOBIN 30.7 pg (27.0-33.0); MEAN CORPUSCULAR HGB CONC 32.7 g/dl (32.0-36.5); MEAN CORPUSCULAR VOLUME 93.6 fl (80.0-96.0); PLATELET COUNT, AUTOMATED 297 10^3/uL (150-450); RED BLOOD COUNT 4.24 10^6/uL (4.00-5.40); WHITE BLOOD COUNT 5.5 10^3/uL (4.0-10.0)
[2022-07-26 16:20] LABS: HEMOGLOBIN A1c 5.2 %
[2022-07-26 17:01] LABS: ALBUMIN 3.6 GM/DL (3.2-5.2); ALT/SGPT 19 U/L (12-78); BILIRUBIN,TOTAL 0.7 MG/DL (0.2-1.0); BLOOD UREA NITROGEN 9 MG/DL (7-18); C REACTIVE PROTEIN QUANTITATIV 1.66 MG/DL (0.00-0.30); CALCIUM LEVEL 9.2 MG/DL (8.5-10.1); CARBON DIOXIDE LEVEL 33 MEQ/L (21-32); CHLORIDE LEVEL 100 MEQ/L (98-107); CHOLESTEROL LEVEL 195 MG/DL (<200); CHOLESTEROL RISK RATIO 3.679 (<5); CREATININE FOR GFR 0.98 MG/DL (0.55-1.30); FREE T4 0.93 NG/DL (0.76-1.46); GLOMERULAR FILTRATION RATE > 60.0 (>51); GLUCOSE, FASTING 78 MG/DL (70-100); HDL CHOLESTEROL 53 MG/DL (>40); LDL CHOLESTEROL 115 MG/DL (<100); NON-HDL-C 142 MG/DL; POTASSIUM SERUM 3.4 MEQ/L (3.5-5.1); SODIUM LEVEL 138 MEQ/L (136-145); TRIGLYCERIDES LEVEL 137 MG/DL (<150)
[2022-07-26 17:11] LABS: MALB URINE SIEMENS 30.7 MG/L; MAU/CREAT RATIO 7.2 MCG/MG (0.0-30.0)
[2022-07-26 17:22] LABS: TOTAL 25(OH) VITAMIN D 39.4 NG/ML (30.0-100.0); VITAMIN B12 LEVEL 364 PG/ML (247-911)
== END ==
LOC: M PLALAB 13:03
PROVIDERS: ATTEND Internal Medicine Hematology
DX: E66.01 Morbid (severe) obesity due to excess calories (principal)

== ENCOUNTER → 2023-01-27 | Outpatient (CLI) | payer OTHER | LOC: M RAD 09:20 | PROVIDERS: ATTEND Internal Medicine Hematology | DX: Z12.2 Encounter for screening for malignant neoplasm of respiratory organs (principal); Z87.891 Personal history of nicotine dependence; K44.9 Diaphragmatic hernia without obstruction or gangrene ==

== ENCOUNTER 2023-02-22 12:28 | Inpatient (IN) | payer OTHER ==
[~2023-02-22] VITALS: Ht 157.5 cm; Wt 90.7 kg
[2023-02-22] MEDS ORDERED: TRAZ-257 (12:55)
[2023-02-22] MEDS ORDERED: IPRATROPIUM 0.5MG/ALBUTEROL 2.5MG INH SOL UD 3ML (DUONEB) NEB ONE (15:25)
[2023-02-22] MEDS ORDERED: methylPREDNISolone 125MG 2ML VIAL IV ONE (15:25)
[2023-02-22] MEDS ORDERED: NS 1,000 ML IV ONE (15:25)
[2023-02-22 16:23] LABS: BASO % 0.6 % (0.0-1.0); EOS # 0.1 10^3/uL (0.0-0.5); HEMATOCRIT 34.8 % (36.0-47.0); HEMOGLOBIN 11.2 g/dl (12.0-15.5); LYMPH # 1.9 10^3/uL (1.5-5.0); LYMPH % 29.6 % (24.0-44.0); MEAN CORPUSCULAR HEMOGLOBIN 31.4 pg (27.0-33.0); MEAN CORPUSCULAR HGB CONC 32.2 g/dl (32.0-36.5); MEAN CORPUSCULAR VOLUME 97.5 fl (80.0-96.0); MONO # 0.5 10^3/uL (0.0-0.8); MONO % 7.2 % (2.0-8.0); NEUTROPHILS # 3.8 10^3/uL (1.5-8.5); NEUTROPHILS % 60.1 % (36.0-66.0); PLATELET COUNT, AUTOMATED 235 10^3/uL (150-450); RED BLOOD COUNT 3.57 10^6/uL (4.00-5.40); WHITE BLOOD COUNT 6.4 10^3/uL (4.0-10.0)
[2023-02-22 16:36] LABS: INR 1.01; PROTHROMBIN TIME 13.5 SECONDS (12.5-14.5)
[2023-02-22 16:39] LABS: D-DIMER QUANT 626.28 ng/ml (<500)
[2023-02-22 16:54] LABS: LIPASE 87 U/L (12-53)
[2023-02-22 16:55] LABS: CK-MB VALUE MASS < 1.0 NG/ML (<3.6)
[2023-02-22 16:56] LABS: ALBUMIN 3.4 G/DL (3.2-5.2); ALKALINE PHOSPHATASE 115 U/L (46-116); ALT/SGPT 35 U/L (7.0-40); AST/SGOT 29 U/L (<34); BILIRUBIN,DIRECT < 0.1 MG/DL (<0.4); BILIRUBIN,TOTAL 0.3 MG/DL (0.3-1.2); TOTAL PROTEIN 6.6 G/DL (5.7-8.2)
[2023-02-22 16:57] LABS: CPK CREATINE PHOSPHOKINASE 75 U/L (34-145); MB/CK RELATIVE INDEX 1.33 (< OR =4)
[2023-02-22 16:59] LABS: THYROXINE (T4) 8.3 UG/DL (4.5-10.9)
[2023-02-22 17:00] LABS: THYROID STIMULATING HORMONE 1.413 uIU/ML (0.55-4.78)
[2023-02-22] MEDS ORDERED: ISOVUE-370 76% 100ML VIAL As Ordered ONE (17:08)
[2023-02-22] MEDS ORDERED: POTASSIUM CHLORIDE 10MEQ SR TABLET PO ONE ×2 (17:35→23:00)
[2023-02-22 19:38] VITALS: O2SAT 90
[2023-02-22] MEDS ORDERED: SENNA 8.6 MG TAB (SENOKOT) PO PRN (20:50)
[2023-02-22] MEDS ORDERED: ACETAMINOPHEN TAB 650MG DOSE (2X325MG) PO PRN (20:50)
[2023-02-22] MEDS ORDERED: traZODone 100 MG TAB PO SCH (21:00)
[2023-02-22] MEDS ORDERED: DOCUSATE SODIUM 100MG CAPSULE PO SCH (21:00)
[2023-02-22] MEDS ORDERED: BISACODYL 5MG TAB PO ONE (21:00)
[2023-02-22] MEDS: buPROPion **SR TABLET** (ZYBAN) 150MG PO SCH (21:00)
[2023-02-22] MEDS ORDERED: GABAPENTIN 400MG CAP PO SCH (21:00)
[2023-02-22 21:55] LABS: CALCIUM LEVEL 7.9 MG/DL (8.5-10.1); CREATININE FOR GFR 1.07 MG/DL (0.55-1.30); GLOMERULAR FILTRATION RATE 55.9 (>51); MAGNESIUM LEVEL 1.5 MG/DL (1.8-2.4); PERCENT SATURATION 15.7 % (13.2-45.0); POTASSIUM SERUM 3.2 MMOL/L (3.5-5.1)
[2023-02-22 21:57] LABS: FERRITIN 66.2 NG/ML (7.3-270.7)
[2023-02-22 22:00] LABS: FOLATE 14.05 NG/ML (>5.4)
[2023-02-22 22:41] LABS: HEMATOCRIT 31.2 % (36.0-47.0); HEMOGLOBIN 10.2 g/dl (12.0-15.5)
[2023-02-22] MEDS ORDERED: BUPR2SUB SL (22:57)
[2023-02-22] MEDS ORDERED: ALBU8.5H INH (22:57)
[2023-02-22] MEDS ORDERED: ATOR80TA59 PO (22:57)
[2023-02-22] MEDS ORDERED: FISH10002 PO (22:57)
[2023-02-22] MEDS ORDERED: TRAZ-189 PO (22:57)
[2023-02-22] MEDS ORDERED: CHOL50003 PO (22:57)
[2023-02-22] MEDS ORDERED: NICO4GUM47 MT (22:57)
[2023-02-22] MEDS ORDERED: BUPR-71 PO (22:57)
[2023-02-22] MEDS ORDERED: HOME MED LIST COMPLETE! XX SCH (23:00)
[2023-02-22] MEDS ORDERED: ALBUTEROL 90 MCG/ACT 8GM HFA INHALER INH PRN (23:05)
[2023-02-22] MEDS: PANTOPRAZOLE 40MG VIAL IV SCH (23:14)
[2023-02-22] MEDS: MAGNESIUM OXIDE 400MG TAB (MAG-OX) PO SCH (23:14)
[2023-02-23] VITALS: BP 117/59
[2023-02-23] MEDS: GABAPENTIN 300 MG CAP PO SCH ×2 (00:32→08:55)
[2023-02-23 05:03] LABS: HEMATOCRIT 31.7 % (36.0-47.0); HEMOGLOBIN 10.3 g/dl (12.0-15.5); MEAN CORPUSCULAR HEMOGLOBIN 31.7 pg (27.0-33.0); MEAN CORPUSCULAR HGB CONC 32.5 g/dl (32.0-36.5); MEAN CORPUSCULAR VOLUME 97.5 fl (80.0-96.0); PLATELET COUNT, AUTOMATED 217 10^3/uL (150-450); RED BLOOD COUNT 3.25 10^6/uL (4.00-5.40); WHITE BLOOD COUNT 5.8 10^3/uL (4.0-10.0)
[2023-02-23 05:30] LABS: CALCIUM LEVEL 8.4 MG/DL (8.5-10.1); CREATININE FOR GFR 1.1 MG/DL (0.55-1.30); GLOMERULAR FILTRATION RATE 54.1 (>51); POTASSIUM SERUM 4.3 MMOL/L (3.5-5.1)
[2023-02-23 05:36] VITALS: BP 112/59
[2023-02-23 08:58] VITALS: BP 119/73
[2023-02-23] MEDS: buPROPion **SR TABLET** (ZYBAN) 150MG PO SCH (08:58)
[2023-02-23] MEDS ORDERED: FLUoxetine 20MG CAP PO SCH (09:00)
[2023-02-23] MEDS ORDERED: SENOKOT S TAB PO SCH (09:00)
[2023-02-23] MEDS ORDERED: ATORVASTATIN 20 MG TAB PO SCH (09:00)
[2023-02-23 10:37] LABS: HEMATOCRIT 33.5 % (36.0-47.0); HEMOGLOBIN 10.9 g/dl (12.0-15.5)
[2023-02-23] MEDS: MAGNESIUM OXIDE 400MG TAB (MAG-OX) PO SCH (11:16)
[2023-02-23] MEDS: PANTOPRAZOLE 40MG VIAL IV SCH (11:16)
== END 2023-02-23 12:25 | disposition home or self-care (01) | DRG 144 ==
LOC: M ED 12:28 → M ED INP 20:49 → ENRESERV 22:56 → M MSPAV 23:41
PROVIDERS: ADMIT Family Medicine; ATTEND Family Medicine
DX: R09.02 Hypoxemia (principal); I10 Essential (primary) hypertension; J45.909 Unspecified asthma, uncomplicated; M54.9 Dorsalgia, unspecified; G89.29 Other chronic pain; K59.00 Constipation, unspecified; K44.9 Diaphragmatic hernia without obstruction or gangrene; R53.83 Other fatigue; G47.33 Obstructive sleep apnea (adult) (pediatric); R74.8 Abnormal levels of other serum enzymes; D64.9 Anemia, unspecified; E87.6 Hypokalemia; R00.1 Bradycardia, unspecified; R53.1 Weakness; G47.00 Insomnia, unspecified; Z79.899 Other long term (current) drug therapy; Z20.822 Contact with and (suspected) exposure to COVID-19; Z90.49 Acquired absence of other specified parts of digestive tract; Z87.891 Personal history of nicotine dependence

== ENCOUNTER → 2023-02-25 | Outpatient (REF) | payer OTHER ==
[~2023-02-25] MED LIST changes: +ALBU8.5H INH; +ATOR80TA59 PO; +BUPR-71 PO; +CHOL50003 PO; +FISH10002 PO; +NICO4GUM47 MT; +TRAZ-189 PO; +TRAZ-257
== END ==
LOC: M SFHCPLAZ 10:54
PROVIDERS: ATTEND Family Medicine
DX: Z53.9 Procedure and treatment not carried out, unspecified reason (principal)

== ENCOUNTER → 2023-04-11 | Outpatient (CLI) | payer OTHER ==
[~2023-04-11] MED LIST changes: +GASTROGRAFIN SOLUTION 30ML As Ordered ONE; +ISOVUE-370 76% 100ML VIAL As Ordered ONE
== END ==
LOC: M RAD 10:14
PROVIDERS: ATTEND Physician Assistant
DX: K44.9 Diaphragmatic hernia without obstruction or gangrene (principal); R10.9 Unspecified abdominal pain

== ENCOUNTER → 2023-05-03 | Outpatient (CLI) | payer OTHER ==
[~2023-05-03] MED LIST changes: -GASTROGRAFIN SOLUTION 30ML As Ordered ONE; -ISOVUE-370 76% 100ML VIAL As Ordered ONE
[2023-05-03 15:46] LABS: BASO # 0.1 10^3/uL (0.0-0.2); BASO % 0.7 % (0.0-1.0); EOS # 0.1 10^3/uL (0.0-0.5); EOS % 1.5 % (0.0-3.0); HEMATOCRIT 36.9 % (36.0-47.0); HEMOGLOBIN 11.9 g/dl (12.0-15.5); LYMPH # 1.8 10^3/uL (1.5-5.0); LYMPH % 26.5 % (24.0-44.0); MEAN CORPUSCULAR HEMOGLOBIN 31.1 pg (27.0-33.0); MEAN CORPUSCULAR HGB CONC 32.2 g/dl (32.0-36.5); MEAN CORPUSCULAR VOLUME 96.3 fl (80.0-96.0); MONO # 0.5 10^3/uL (0.0-0.8); MONO % 7.5 % (2.0-8.0); NEUTROPHILS # 4.2 10^3/uL (1.5-8.5); NEUTROPHILS % 63.5 % (36.0-66.0); PLATELET COUNT, AUTOMATED 271 10^3/uL (150-450); RED BLOOD COUNT 3.83 10^6/uL (4.00-5.40); WHITE BLOOD COUNT 6.7 10^3/uL (4.0-10.0)
[2023-05-03 16:16] LABS: CALCIUM LEVEL 10.1 MG/DL (8.5-10.1); CREATININE FOR GFR 1.58 MG/DL (0.55-1.30); GLOMERULAR FILTRATION RATE 35.6 (>51); PERCENT SATURATION 22.3 % (13.2-45.0); POTASSIUM SERUM 3.5 MMOL/L (3.5-5.1)
[2023-05-03 16:19] LABS: FERRITIN 77.3 NG/ML (7.3-270.7)
== END ==
LOC: M PLALAB 14:03
PROVIDERS: ATTEND Family Medicine
DX: D64.9 Anemia, unspecified (principal)

== ENCOUNTER 2023-05-18 07:02 | Day surgery (SDC) | payer OTHER ==
[~2023-05-18] VITALS: Ht 154.9 cm; Wt 84.4 kg
[~2023-05-18 07:02] MED LIST changes: +NS 1,000 ML IV ONE
[2023-05-18] MEDS ORDERED: propofoL 200 MG/20 ML VIAL As Ordered ONE (08:34)
[2023-05-18] MEDS ORDERED: fentaNYL 100 MCG/2 ML INJECTION As Ordered ONE (08:34)
[2023-05-18] MEDS ORDERED: LIDOCAINE 2% 100MG/5ML SDV (FOR ANES.) As Ordered ONE (08:34)
[2023-05-18 09:08] VITALS: BP 105/57; TEMP 97.2; O2SAT 94
== END 2023-05-18 09:14 | disposition home or self-care (01) ==
LOC: M OPP 07:02
PROVIDERS: ATTEND Surgery
DX: K30 Functional dyspepsia (principal); K44.9 Diaphragmatic hernia without obstruction or gangrene; F17.290 Nicotine dependence, other tobacco product, uncomplicated; Z79.02 Long term (current) use of antithrombotics/antiplatelets; Z79.51 Long term (current) use of inhaled steroids; Z79.891 Long term (current) use of opiate analgesic; Z79.899 Other long term (current) drug therapy
CPT/HCPCS: 43235; J3010

== ENCOUNTER → 2023-10-27 | Outpatient (CLI) | payer OTHER ==
[~2023-10-27] MED LIST changes: -NS 1,000 ML IV ONE
== END ==
LOC: M WHC 15:30
PROVIDERS: ATTEND Internal Medicine Hematology
DX: Z12.31 Encounter for screening mammogram for malignant neoplasm of breast (principal)

== ENCOUNTER 2024-02-27 15:59 | Emergency (ER) | payer OTHER ==
[~2024-02-27] VITALS: Ht 154.9 cm; Wt 65.9 kg
[2024-02-27] MEDS: NS 1,000 ML IV ONE (18:22)
[2024-02-27 18:31] LABS: BASO % 0.5 % (0.0-1.0); EOS # 0.1 10^3/uL (0.0-0.5); EOS % 1.8 % (0.0-3.0); HEMATOCRIT 35.9 % (36.0-47.0); HEMOGLOBIN 12.5 g/dl (12.0-15.5); LYMPH # 1.3 10^3/uL (1.5-5.0); LYMPH % 19.4 % (24.0-44.0); MEAN CORPUSCULAR HEMOGLOBIN 31.9 pg (27.0-33.0); MEAN CORPUSCULAR HGB CONC 34.8 g/dl (32.0-36.5); MEAN CORPUSCULAR VOLUME 91.6 fl (80.0-96.0); MONO # 0.6 10^3/uL (0.0-0.8); MONO % 8.6 % (2.0-8.0); NEUTROPHILS # 4.5 10^3/uL (1.5-8.5); NEUTROPHILS % 68.9 % (36.0-66.0); PLATELET COUNT, AUTOMATED 304 10^3/uL (150-450); RED BLOOD COUNT 3.92 10^6/uL (4.00-5.40); WHITE BLOOD COUNT 6.5 10^3/uL (4.0-10.0)
[2024-02-27] MEDS: KCL 10MEQ/100ML SWI (KRUN) 10 MEQ in IV 1 EA IV ONE (18:52)
[2024-02-27] MEDS: POTASSIUM CHLORIDE 10MEQ SR TABLET PO ONE (18:52)
[2024-02-27 21:34] VITALS: BP 110/60; TEMP 98.6; O2SAT 95
== END 2024-02-27 21:36 | disposition home or self-care (01) ==
LOC: M ED 15:59 → EDBD 15:59 → M ED 21:36
DX: E83.42 Hypomagnesemia (principal); E87.6 Hypokalemia; R53.81 Other malaise; I10 Essential (primary) hypertension; J45.909 Unspecified asthma, uncomplicated; F43.10 Post-traumatic stress disorder, unspecified; Z87.891 Personal history of nicotine dependence; Z79.899 Other long term (current) drug therapy

== ENCOUNTER → 2024-05-11 | Outpatient (CLI) | payer OTHER ==
[2024-05-11 15:50] LABS: BASO # 0.1 10^3/uL (0.0-0.2); EOS # 0.1 10^3/uL (0.0-0.5); EOS % 2.1 % (0.0-3.0); HEMATOCRIT 33.8 % (36.0-47.0); HEMOGLOBIN 10.9 g/dl (12.0-15.5); LYMPH # 1.3 10^3/uL (1.5-5.0); LYMPH % 24.8 % (24.0-44.0); MEAN CORPUSCULAR HEMOGLOBIN 31.1 pg (27.0-33.0); MEAN CORPUSCULAR HGB CONC 32.2 g/dl (32.0-36.5); MEAN CORPUSCULAR VOLUME 96.6 fl (80.0-96.0); MONO # 0.3 10^3/uL (0.0-0.8); MONO % 6.5 % (2.0-8.0); NEUTROPHILS # 3.4 10^3/uL (1.5-8.5); NEUTROPHILS % 65.2 % (36.0-66.0); PLATELET COUNT, AUTOMATED 258 10^3/uL (150-450); WHITE BLOOD COUNT 5.2 10^3/uL (4.0-10.0)
[2024-05-11 16:05] LABS: C REACTIVE PROTEIN QUANTITATIV 0.9 MG/DL (<1.0)
[2024-05-11 16:06] LABS: CREATININE, URINE 150.4 MG/DL; MALB URINE SIEMENS < 3.0 MG/L; MAU/CREAT RATIO 1.9 MCG/MG (0.0-30.0)
[2024-05-11 16:07] LABS: ALBUMIN 3.3 G/DL (3.2-5.2); BILIRUBIN,TOTAL 0.4 MG/DL (0.3-1.2); CALCIUM LEVEL 8.7 MG/DL (8.3-10.6); CHOLESTEROL RISK RATIO 2.58 (<5); CREATININE FOR GFR 1.15 MG/DL (0.55-1.30); GLOMERULAR FILTRATION RATE 51.2 (>45); HDL CHOLESTEROL 56.8 MG/DL (>40); LDL CHOLESTEROL 77.2 MG/DL (<100); NON-HDL-C 90.2 MG/DL; POTASSIUM SERUM 3.8 MMOL/L (3.5-5.1); TOTAL PROTEIN 6.3 G/DL (5.7-8.2)
[2024-05-11 16:20] LABS: THYROID STIMULATING HORMONE 1.689 uIU/ML (0.55-4.78); TOTAL 25(OH) VITAMIN D 89.9 NG/ML (20.0-100.0)
[2024-05-11 16:21] LABS: FREE T4 0.81 NG/DL (0.89-1.76)
[2024-05-11 16:52] LABS: HEMOGLOBIN A1c 4.8 % (4.0-6.0)
== END ==
LOC: M PLALAB 11:22
PROVIDERS: ATTEND Internal Medicine Hematology
DX: I10 Essential (primary) hypertension (principal)

== ENCOUNTER 2024-10-11 15:51 | Emergency (ER) | payer OTHER ==
[~2024-10-11] VITALS: Ht 157.5 cm; Wt 77.1 kg
[~2024-10-11 15:51] MED LIST changes: +GABA-1635 PO; -GABA800T4 PO
[2024-10-11 17:40] LABS: BASO # 0.1 10^3/uL (0.0-0.2); BASO % 1.2 % (0.0-1.0); EOS # 0.1 10^3/uL (0.0-0.5); EOS % 2.8 % (0.0-3.0); HEMATOCRIT 35.9 % (36.0-47.0); HEMOGLOBIN 11.7 g/dl (12.0-15.5); LYMPH # 1.6 10^3/uL (1.5-5.0); LYMPH % 32.3 % (24.0-44.0); MEAN CORPUSCULAR HEMOGLOBIN 31.4 pg (27.0-33.0); MEAN CORPUSCULAR HGB CONC 32.6 g/dl (32.0-36.5); MEAN CORPUSCULAR VOLUME 96.2 fl (80.0-96.0); MONO # 0.4 10^3/uL (0.0-0.8); MONO % 8.1 % (2.0-8.0); NEUTROPHILS # 2.8 10^3/uL (1.5-8.5); NEUTROPHILS % 55.2 % (36.0-66.0); PLATELET COUNT, AUTOMATED 216 10^3/uL (150-450); RED BLOOD COUNT 3.73 10^6/uL (4.00-5.40); WHITE BLOOD COUNT 5.1 10^3/uL (4.0-10.0)
[2024-10-11 18:03] LABS: LIPASE 19 U/L (12-53)
[2024-10-11 18:05] LABS: ALBUMIN 3.4 G/DL (3.2-5.2); ALKALINE PHOSPHATASE 102 U/L (35-104); ALT/SGPT 62 U/L (7.0-40); AST/SGOT 56 U/L (<34); BILIRUBIN,DIRECT < 0.1 MG/DL (<0.4); BILIRUBIN,TOTAL 0.4 MG/DL (0.3-1.2); BLOOD UREA NITROGEN 11 MG/DL (9-23); CARBON DIOXIDE LEVEL 32 MMOL/L (20-31); CHLORIDE LEVEL 103 MMOL/L (98-107); CREATININE FOR GFR 0.87 MG/DL (0.55-1.30); GLOMERULAR FILTRATION RATE > 60.0 (>45); GLUCOSE, FASTING 80 MG/DL (74-106); POTASSIUM SERUM 4.2 MMOL/L (3.5-5.1); SODIUM LEVEL 141 MMOL/L (136-145); TOTAL PROTEIN 6.9 G/DL (5.7-8.2)
[2024-10-11 18:29] LABS: KETONE, URINE AUTO RFX NEGATIVE (NEGATIVE); LEUKOCYTE ESTERASE UR AUTO RFX NEGATIVE (NEGATIVE); NITRITE, URINE AUTO RFX NEGATIVE (NEGATIVE); RBC, URINE AUTO RFX 1 /HPF (0-3); SQUAM EPITHELIAL CELL UR AURFX 0 /HPF (0-6); WBC, URINE AUTO RFX 0 /HPF (0-3)
[2024-10-11] MEDS ORDERED: ISOVUE-370 76% 100ML VIAL As Ordered ONE (19:36)
[2024-10-11] MEDS: KETOROLAC 30 MG/ML 1ML VIAL IV ONE (19:49)
[2024-10-11 22:02] VITALS: BP 166/73; TEMP 96.9; O2SAT 98
== END 2024-10-11 22:04 | disposition home or self-care (01) ==
LOC: M ED 15:51
DX: R10.84 Generalized abdominal pain (principal); K44.9 Diaphragmatic hernia without obstruction or gangrene; I10 Essential (primary) hypertension; E78.5 Hyperlipidemia, unspecified; F17.290 Nicotine dependence, other tobacco product, uncomplicated; Z79.51 Long term (current) use of inhaled steroids; Z79.899 Other long term (current) drug therapy
CPT/HCPCS: 74177; 80048; 80076; 81001; 83690; 85025; 96374; 99284; J1885; Q9967

== ENCOUNTER → 2024-11-21 | Outpatient (CLI) | payer OTHER ==
[2024-11-21 12:05] LABS: BASO # 0.1 10^3/uL (0.0-0.2); EOS # 0.1 10^3/uL (0.0-0.5); EOS % 2.6 % (0.0-3.0); HEMATOCRIT 35.4 % (36.0-47.0); HEMOGLOBIN 11.6 g/dl (12.0-15.5); LYMPH # 1.5 10^3/uL (1.5-5.0); LYMPH % 28.5 % (24.0-44.0); MEAN CORPUSCULAR HEMOGLOBIN 31.2 pg (27.0-33.0); MEAN CORPUSCULAR HGB CONC 32.8 g/dl (32.0-36.5); MEAN CORPUSCULAR VOLUME 95.2 fl (80.0-96.0); MONO # 0.3 10^3/uL (0.0-0.8); MONO % 6.5 % (2.0-8.0); NEUTROPHILS # 3.1 10^3/uL (1.5-8.5); NEUTROPHILS % 61.2 % (36.0-66.0); PLATELET COUNT, AUTOMATED 214 10^3/uL (150-450); RED BLOOD COUNT 3.72 10^6/uL (4.00-5.40); WHITE BLOOD COUNT 5.1 10^3/uL (4.0-10.0)
[2024-11-21 12:24] LABS: ERYTHROCYTE SEDIMENTATION RATE 24 mm/hr (0-30)
[2024-11-21 12:33] LABS: ALBUMIN 3.4 G/DL (3.2-5.2); ALKALINE PHOSPHATASE 112 U/L (35-104); ALT/SGPT 70 U/L (7.0-40); AST/SGOT 52 U/L (<34); BILIRUBIN,TOTAL 0.4 MG/DL (0.3-1.2); BLOOD UREA NITROGEN 15 MG/DL (9-23); CALCIUM LEVEL 9.4 MG/DL (8.3-10.6); CARBON DIOXIDE LEVEL 33 MMOL/L (20-31); CHLORIDE LEVEL 107 MMOL/L (98-107); CREATININE FOR GFR 1.04 MG/DL (0.55-1.30); GLOMERULAR FILTRATION RATE 57.4 (>45); GLUCOSE, FASTING 79 MG/DL (74-106); SODIUM LEVEL 144 MMOL/L (136-145); TOTAL PROTEIN 6.8 G/DL (5.7-8.2)
[2024-11-21 12:35] LABS: THYROID STIMULATING HORMONE 1.346 uIU/ML (0.55-4.78); THYROXINE (T4) 5.3 UG/DL (4.5-10.9)
[2024-11-21 12:36] LABS: FREE T4 0.88 NG/DL (0.89-1.76); FREE THYROXINE INDEX 1.6 % (1.3-4.8); T UPTAKE 30.1 % (22.5-37.0); VITAMIN B12 LEVEL 441 PG/ML (211-911)
[2024-11-21 12:58] LABS: FOLATE 12.97 NG/ML (>5.4)
== END ==
LOC: M LAB 10:31
PROVIDERS: ATTEND Psychiatry & Neurology Neurology
DX: E07.9 Disorder of thyroid, unspecified (principal)

== ENCOUNTER → 2025-01-18 | Outpatient (REF) | payer OTHER | LOC: M SFHCPLAZ 14:37 | PROVIDERS: ATTEND Family Medicine | DX: Z53.9 Procedure and treatment not carried out, unspecified reason (principal) ==

== ENCOUNTER → 2025-02-05 | Outpatient (CLI) | payer OTHER ==
[2025-02-05 14:51] LABS: ALBUMIN 3.3 G/DL (3.2-5.2); BILIRUBIN,TOTAL 0.4 MG/DL (0.3-1.2); CALCIUM LEVEL 9.2 MG/DL (8.3-10.6); CREATININE FOR GFR 1.08 MG/DL (0.55-1.30); GLOMERULAR FILTRATION RATE 54.9 (>45); POTASSIUM SERUM 4.3 MMOL/L (3.5-5.1); TOTAL PROTEIN 6.7 G/DL (5.7-8.2)
== END ==
LOC: M PLALAB 11:57
PROVIDERS: ATTEND Student in an Organized Health Care Education/Training Program
DX: R74.8 Abnormal levels of other serum enzymes (principal)

== ENCOUNTER → 2025-02-27 | Outpatient (CLI) | payer OTHER | LOC: M RAD 14:16 | PROVIDERS: ATTEND Nurse Practitioner Adult Health | DX: Z87.891 Personal history of nicotine dependence (principal) ==